=== PATIENT | female | born 1995 | race Caucasian/White ===

== ENCOUNTER 2018-11-08 18:33 | Observation (INO) ==
[2018-11-08 19:22] LABS: Amphetamine Screen,Urine Negative ng/mL (Cutoff=1000); Barbiturate Screen,Urine Negative ng/mL (Cutoff=200); Benzodiazepines Screen,Urine Negative ng/mL (Cutoff=200); Cannabinoid Screen,Urine Negative ng/mL (Cutoff = 50); Cocaine Screen,Urine Negative ng/mL (Cutoff= 300); Opiate Screen,Urine Negative ng/mL (Cutoff=300); Phencyclidine Screen,Urine Negative ng/mL (Cutoff=25)
== END 2018-11-08 19:45 | disposition home or self-care (01) ==
LOC: 1NENULAB
PROVIDERS: ADMIT Registered Nurse; ATTEND Registered Nurse

== ENCOUNTER 2018-12-26 14:30 | Observation (INO) ==
[2018-12-26 14:55] LABS: Amphetamine Screen,Urine Negative ng/mL (Cutoff=1000); Barbiturate Screen,Urine Negative ng/mL (Cutoff=200); Benzodiazepines Screen,Urine Negative ng/mL (Cutoff=200); Cannabinoid Screen,Urine Negative ng/mL (Cutoff = 50); Cocaine Screen,Urine Negative ng/mL (Cutoff= 300); Opiate Screen,Urine Negative ng/mL (Cutoff=300); Phencyclidine Screen,Urine Negative ng/mL (Cutoff=25)
[2018-12-26 14:58] LABS: Bilirubin,Urine Negative (Negative); Blood,Urine Negative (Negative); Clarity,Urine Clear (Clear); Color,Urine Yellow (Yellow); Glucose,Urine (UA) Normal (Normal); Ketones,Urine Negative (Negative); Leukocyte Esterase,Urine Trace (Negative); Nitrite,Urine Negative (Negative); PH,Urine 7.5 pH Units (5.0-8.0); Protein,Urine Trace mg/dL (Neg-Trace); Specific Gravity,Urine 1.018 (1.010-1.025); Urobilinogen,Urine Normal (Normal)
[2018-12-26 15:08] LABS: Bacteria,Urine Few per hpf (None-Few); RBC,Urine 0-3 per hpf (0-3); Squamous Epithelial Cell,Urine Few per lpf (None-Few); WBC,Urine 0-3 per hpf (0-3)
[2018-12-26] MEDS ORDERED: Ringers Solution, Lactated 1,000 ML IVC ONE (15:27)
[2018-12-26] MEDS ORDERED: Acetaminophen/Butalbital/CaffeineTABLET PO PRN (15:27)
[2018-12-26] MEDS ORDERED: Ringers Solution, Lactated 1,000 ML ONE (15:32)
[2018-12-26] MEDS ORDERED: FLU Vac QV 19-20 (6Month+)/PF 0.5 ML SYRINGE IM ONE (17:22)
== END 2018-12-26 17:55 | disposition home or self-care (01) ==
LOC: 1NENULAB
PROVIDERS: ADMIT Advanced Practice Midwife; ATTEND Advanced Practice Midwife

== ENCOUNTER 2019-01-20 07:30 | Inpatient (IN) ==
[2019-01-25] MEDS ORDERED: Naloxone 0.4 MG/ML INJ IVP PRN ×2 (06:26→08:13)
[2019-01-25] MEDS ORDERED: Famotidine 20 MG/2 ML VIAL IVP ONE (06:26)
[2019-01-25] MEDS ORDERED: Ringers Solution, Lactated 1,000 ML IVC ONE (06:26)
[2019-01-25] MEDS ORDERED: Metoclopramide 10 MG/2 ML VIAL IVP ONE (06:26)
[2019-01-25] MEDS ORDERED: Ringers Solution, Lactated 1,000 ML IVC SCH (06:30)
[2019-01-25] MEDS ORDERED: Ringers Solution, Lactated 1,000 ML ONE ×2 (06:31→07:17)
[2019-01-25 06:53] LABS: Amphetamine Screen,Urine Negative ng/mL (Cutoff=1000); Barbiturate Screen,Urine Negative ng/mL (Cutoff=200); Benzodiazepines Screen,Urine Negative ng/mL (Cutoff=200); Cannabinoid Screen,Urine Negative ng/mL (Cutoff = 50); Cocaine Screen,Urine Negative ng/mL (Cutoff= 300); Opiate Screen,Urine Negative ng/mL (Cutoff=300); Phencyclidine Screen,Urine Negative ng/mL (Cutoff=25)
[2019-01-25 06:59] LABS: Basophils % 0.3 %; Eosinophils # 0.1 K/mcL (0.0-0.6); Eosinophils % 1.3 %; Hematocrit 32.4 % (35.3-44.9); Hemoglobin 9.9 g/dL (11.5-15.4); Lymphocytes # 2.2 K/mcL (0.6-4.6); Mean Corpuscular HGB Conc 30.6 g/dL (31.6-35.5); Mean Corpuscular Hemoglobin 25.8 pg (28.0-33.3); Mean Corpuscular Volume 84.6 fL (83.0-100.0); Monocytes # 0.8 K/mcL (0.0-1.3); Monocytes % 8.3 %; Neutrophils # 6.6 K/mcL (1.6-8.9); Platelet Count 159 K/mcL (140-400); Red Blood Count 3.83 M/mcL (3.82-4.97); Red Cell Distribution Width 14.9 % (11.5-14.5); Segmented Neutrophils % 66.1 %
[2019-01-25] MEDS ORDERED: *HR* Phenylephrine 10 MG/ML VIAL ONE (07:09)
[2019-01-25] MEDS ORDERED: *HR* Oxytocin 10 UNIT/ML VIAL IM ONE (07:09)
[2019-01-25] MEDS ORDERED: *HR* FentaNYL (PF) 100 MCG/2 ML VIAL ONE (07:10)
[2019-01-25] MEDS ORDERED: *HR* Morphine Sulfate/PF 10 MG/10 ML AMPUL ONE (07:10)
[2019-01-25] MEDS ORDERED: CeFAZolin Premix DUPLEX 2,000 MG/50 ML BAG IVPB ONE (07:27)
[2019-01-25] MEDS ORDERED: *HR* Meperidine 25 MG/ML SYRINGE IVP PRN (08:13)
[2019-01-25] MEDS ORDERED: Ibuprofen 400 MG TABLET PO PRN (08:13)
[2019-01-25] MEDS ORDERED: Ondansetron 4 MG/2 ML VIAL IVP ONE (08:13)
[2019-01-25] MEDS ORDERED: Ondansetron 4 MG/2 ML VIAL IVP PRN ×2 (08:13→11:45)
[2019-01-25] MEDS ORDERED: *HR* OxyCODONE Immed Rel 5 MG TABLET PO PRN (08:13)
[2019-01-25] MEDS ORDERED: *HR* HYDROmorphone (PF) 1 MG/ML SYRINGE IVP PRN ×2 (08:13)
[2019-01-25] MEDS ORDERED: *HR* Promethazine 25 MG/ML VIAL IVP PRN (08:13)
[2019-01-25] MEDS ORDERED: *HR* Nalbuphine 10 MG/ML AMPUL IV PRN (10:52)
[2019-01-25] MEDS ORDERED: Sennosides 8.6 MG TABLET PO PRN (11:45)
[2019-01-25] MEDS ORDERED: Rho Immune Globulin 1,500 UNIT SYRINGE IM ONE (11:45)
[2019-01-25] MEDS ORDERED: Metoclopramide 10 MG/2 ML VIAL IVP PRN (11:45)
[2019-01-25] MEDS ORDERED: *HR* OxyCODONE/APAP 5/325 TABLET PO PRN (11:45)
[2019-01-25] MEDS ORDERED: Simethicone 80 MG TAB.CHEW PO PRN (11:45)
[2019-01-25] MEDS: Oxytocin 20 units/ LR 1000 mL 20 UNIT/1,000 ML BAG IVC SCH ×2 (13:07→22:31)
[2019-01-25] MEDS: Ibuprofen 600 MG TABLET PO PRN (16:33)
[2019-01-26 06:49] LABS: Basophils % 0.3 %; Eosinophils # 0.2 K/mcL (0.0-0.6); Eosinophils % 1.5 %; Hematocrit 29.7 % (35.3-44.9); Immature Granulocytes % 1.1 % (0-4); Lymphocytes # 2.2 K/mcL (0.6-4.6); Mean Corpuscular HGB Conc 30.3 g/dL (31.6-35.5); Mean Corpuscular Hemoglobin 25.6 pg (28.0-33.3); Mean Corpuscular Volume 84.6 fL (83.0-100.0); Mean Platelet Volume 11.5 fL (9.4-12.4); Monocytes # 1.1 K/mcL (0.0-1.3); Monocytes % 9.8 %; Neutrophils # 7.8 K/mcL (1.6-8.9); Platelet Count 146 K/mcL (140-400); Red Blood Count 3.51 M/mcL (3.82-4.97); Red Cell Distribution Width 15.3 % (11.5-14.5); Segmented Neutrophils % 68.3 %; White Blood Count 11.5 K/mcL (4.3-11.1)
[2019-01-26] MEDS: Ibuprofen 600 MG TABLET PO PRN (08:37)
[2019-01-26] MEDS ORDERED: Prenatal Vit/FA 1 EACH TABLET PO SCH (09:00)
[2019-01-26] MEDS ORDERED: NON-FORMULARY MEDICATION 1 EACH EACH (Prenatal Vit 108/Iron/Folic Ac [Prenatal One Tablet] PO SCH (09:00)
[2019-01-26] MEDS ORDERED: Measles/Mumps/Rubella Vacc 0.5 ML VIAL SQ ONE (11:09)
[2019-01-26 15:36] VITALS: BP 119/79
== END 2019-01-26 17:20 | disposition home or self-care (01) | DRG 540 ==
LOC: 1NENULAB 01-25 06:13 → 1NENUOBS 01-25 10:52
PROVIDERS: ADMIT Obstetrics & Gynecology; ATTEND Obstetrics & Gynecology